=== PATIENT | male | born 1990 | race Caucasian/White ===

== ENCOUNTER 2020-04-06 22:11 | Emergency (ER) | payer OTHER, SELFPAY ==
[2020-04-06 22:26] VITALS: BP 125/79; PULSE 106; RESP 20; TEMP 36.9; O2SAT 100
--- NOTE | 2020-04-06 22:44 | ED.SKABFB ---
HPI - Skin/Abscess/Foreign Bdy General Chief complaint: Skin/Abscess/Foreign Body Stated complaint: sore in nose,cut hand open Source: patient Mode of arrival: ambulatory Limitations: no limitations History of Present Illness HPI narrative: this is a 30-year-old gentleman presents with a 48hour old laceration on the right hand already healing that occurred after he cut it with a knife did not think it was bad enough initially to come in currently appears to be healing with no discharge no redness no warmth or tenderness. Also has a crusty lesion on the left internal nostril with no discharge and family members with some MRSA of the the nares. complaint: laceration ( 48hour old laceration already in healing stage /crusty lesion left internal [place]) Onset (ago): day(s) Tetanus up to date: yes Severity: mild Related Data Allergies Allergy/AdvReac Type Severity Reaction Status Date / Time Penicillins Allergy Rash Verified 04/06/20 22:35 Review of Systems Review of Systems: All systems reviewed & are unremarkable except as noted in HPI and below PMFSH Past Medical History Medical History Patient denies medical problems Social History Social History Gender identity (if verbalized by the patient): Male Exam Const: General: no acute distress HENMT: Head: normal to inspection Eyes: Pupils: Equal, round and reactive pupils present Neck: Neck: normal visual inspection Chest: Chest palpation & inspection: normal inspection of the chest Resp: Effort & Inspection: normal respiratory effort Auscultation: clear to auscultation bilaterally Cardio: Rate: regular rate Rhythm: regular rhythm GI: GI Palp: Yes Soft to palpation Skin: Other: crusty lesion left internal [place] Extrem: General: normal to inspection Psych: Appearance: grossly normal Mental Status: mental status grossly normal Course Course Emergency Course: form patient that we cannot suture the current 2-day-old laceration on his right hand will place some triple antibiotic ointment on that lesion and on the crusty lesion on the left internal Powell. Vital Signs Vital signs: Vital Signs Temperature 36.9 C 04/06/20 22:26 Pulse Rate 106 H 04/06/20 22:26 Respiratory Rate 20 04/06/20 22:26 Blood Pressure 125/79 04/06/20 22:26 Pulse Oximetry 100 04/06/20 22:26 Temperature 36.9 C 04/06/20 22:26 Pulse Rate 106 H 04/06/20 22:26 Respiratory Rate 20 04/06/20 22:26 Blood Pressure 125/79 04/06/20 22:26 Pulse Oximetry 100 04/06/20 22:26 Critical Care Time Critical Care Time Critical Care Time: No Discharge Plan Discharge Clinical Impression: Skin lesion, Laceration Patient Disposition: Home, Self-Care Condition: Stable Instructions: Antibiotic Form, Laceration (ED), Folliculitis (ED) Additional Instructions: use medication as prescribed, can use Neosporin on affected laceration daily x5 days, follow-up primary care physician if symptoms persist or worsen. Prescriptions: New mupirocin 2 % ointment 1 applic topical TID 7 Days Qty: 15 RF: 0 Follow-up/Referrals: UNKNOWN,DOCTOR [Primary Care Provider] - Time of Disposition: 22:52
[2020-04-06] MEDS: NEOMYCIN/POLYMYXIN/BACITRACIN OINTMENT PACKET 1 PACKET TOPICAL (22:51)
[2020-04-06 22:52] VITALS: PULSE 105; RESP 20; O2SAT 100
== END 2020-04-06 22:55 | disposition home or self-care (01) ==
PROVIDERS: Emergency Provider Emergency Medicine
DX: S61.411A Laceration without foreign body of right hand, initial encounter (principal); L98.9 Disorder of the skin and subcutaneous tissue, unspecified; W26.0XXA Contact with knife, initial encounter
CPT/HCPCS: 99283

== ENCOUNTER 2025-04-28 13:42 | Emergency (ER) | payer BC, MEDICAID, SELFPAY ==
[2025-04-28 13:42] VITALS: BP 151/92; PULSE 110; RESP 20; TEMP 36.3; O2SAT 98
--- OUTSIDE RECORDS SUMMARY | 2025-04-28 13:50 | XMS_ITS | Clinical Summary ---
Author Organization [facility] Address [address] [place] [id number] Care Team Providers Care Wood Technologist Name Role Phone None, Provider MD Primary Care Provider Unavaila ble Allergies Active Allergy Reactions Criticality Noted Date Comments Penicillins Anaphylaxis High 01/27/2020 Medications No known medications Social History Tobacco Use Types Packs/Day Years Used Date Smoking Tobacco: Every Day Smokeless Tobacco: Never Alcohol Use Standard Drinks/Week Comments Yes 0 (1 standard drink = 0.6 oz pur e alcohol) Sex and Gender Information Value Date Recorded Sex Assigned at Not on file 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 Gender Identity Not on file Sexual Orientation Not on file Last Filed Vital Signs Vital Sign Reading Time Taken Comments Blood Pressure 150/93 10/10/2020 11:39 AM CDT Pulse 105 10/10/2020 11:39 AM CDT Temperature 36.7 C (98 F) 10/10/2020 11:39 AM CDT Respiratory Rate 14 10/10/2020 11:39 AM CDT Oxygen Saturation 100% 10/10/2020 11:39 AM CDT Inhaled Oxygen Concentration - - Weight 94 kg (207 lb 3.7 oz) 10/10/2020 11:39 AM CDT Height 165.1 cm (5' 5) 10/10/2020 11:39 AM CDT Body Mass Index 34.49 10/10/2020 11:39 AM CDT Plan of Treatment Health Maintenance Due Date Last Done Comments Annual Physical 1993 Hepatitis C 02/20/2008 DTaP, Tdap and Td Vaccines (1 - Tdap) 2009 02/26/1996, 02/25/1994, 07/24/1992, Additional history exists Hepatitis B Vaccines (1 of 3 - 19+ 3-dose series) 2009 Pneumococcal Vaccine: Pediatrics (0 to 5 Years) and At-Risk Patients (6 to 49 Years) (1 of 2 - PCV) 2009 HPV Vaccines (1 - 3-dose SCDM series) 2017 COVID-19 Vaccine (1 - 2024- season) 2025 Influenza Adult (#1) 2025 Hepatitis A Vaccines Aged Out No long er eligible based on patient's age to complete this topic Meningococcal B Vaccine Aged Out No l onger eligible based on patient's age to complete this topic Meningococcal Vaccine Aged Out No bladimir lory eligible based on patient's age to complete this topic RSV Immunizations Under 20 Months Aged Out No longer eligible based on patient's age to complete this topic Insurance [employer] MEDICAID Care Teams Wood Technologist Relationship Specialty Start Date End Date None, Provider, PCP - General 01/27/20
--- NOTE | 2025-04-28 14:00 | ED.GENADULT ---
HPI - General Adult General Chief complaint: Extremity Injury, Lower Stated complaint: right knee injury Time Seen by Provider: 04/28/25 14:00 History of Present Illness HPI narrative: Finn is a 35M that was previously healthy that presented to the ED with right knee pain. He jumped to grab a board a few days ago and had a popping. He has had pain and swelling since. It is TTP on the medial side. No other injuries reporte. Related Data Allergies Allergy/AdvReac Type Severity Reaction Status Date / Time Penicillins Allergy Rash Verified 04/06/20 22:35 Review of Systems Review of Systems: All systems reviewed & are unremarkable except as noted in HPI and below PMFSH Past Medical History Medical History Patient denies medical problems Social History Social History Gender identity (if verbalized by the patient): Male Exam Const: General: cooperative, healthy appearing, comfortable, no acute distress, well developed, alert, awake and Physically active Orientation/consciousness: oriented to person, oriented to place and oriented to time HENMT: Head: normal to inspection, normocephalic and atraumatic Ears: hearing grossly normal bilaterally and external ears normal Face/Nose/Sinus: Normal external nose present Eyes: General: appearance normal, both eyes and all related structures Periorbital: periorbital findings normal Sclera: sclerae normal Pupils: Equal, round and reactive pupils present Neck: Neck: normal visual inspection Chest: Chest palpation & inspection: normal inspection of the chest Resp: Effort & Inspection: normal respiratory effort, able to speak in complete sentences and no respiratory distress Cardio: Jugular venous distension: no JVD Skin: General skin exam: normal color and no rashes or lesions noted Neuro: General: oriented to person, oriented to place and oriented to time Cranial nerves: Yes Equal, round and reactive pupils present Extrem: General: normal to inspection Other: +Anterior drawer test, TTP over the medial joint line, pain and laxity with valgus pressure Course Course Emergency Course: -patient left AMA before radiographs or meds Vital Signs Vital signs: Vital Signs Temperature 97.4 F L 04/28/25 13:42 Pulse Rate 110 H 04/28/25 13:42 Respiratory Rate 20 04/28/25 13:42 Blood Pressure 151/92 H 04/28/25 13:42 Pulse Oximetry 98 04/28/25 13:42 Oxygen Delivery Room Air 04/28/25 13:42 Temperature 97.4 F L 04/28/25 13:42 Pulse Rate 110 H 04/28/25 13:42 Respiratory Rate 20 04/28/25 13:42 Blood Pressure 151/92 H 04/28/25 13:42 Pulse Oximetry 98 04/28/25 13:42 Oxygen Delivery Room Air 04/28/25 13:42 Medical Decision Making Vital Signs Vital Signs: Vital Signs Temperature 97.4 F L 04/28/25 13:42 Pulse Rate 110 H 04/28/25 13:42 Respiratory Rate 20 04/28/25 13:42 Blood Pressure 151/92 H 04/28/25 13:42 Pulse Oximetry 98 04/28/25 13:42 Oxygen Delivery Room Air 04/28/25 13:42 Temperature 97.4 F L 04/28/25 13:42 Pulse Rate 110 H 04/28/25 13:42 Respiratory Rate 04/28/25 13:42 Blood Pressure 151/92 H 04/28/25 13:42 Pulse Oximetry 98 04/28/25 13:42 Oxygen Delivery Room Air 04/28/25 13:42 Discharge Plan Discharge Clinical Impression: Acute pain of right knee Patient Disposition: Left Against Medical Advice Condition: Serious Patient Language: Citizen Of [place] Prescriptions: No Action mupirocin 2 % ointment 1 applic topical TID 7 Days Qty: 15 0RF Rx Instructions: apply to left Nostril Follow-up/Referrals: Nathan Corral MD [Primary Care Provider, Internal Medicine]
== END 2025-04-28 14:04 | disposition left against medical advice (07) ==
PROVIDERS: Emergency Provider Family Medicine; PCP Family Medicine
DX: M25.561 Pain in right knee (principal)
CPT/HCPCS: 99281